=== PATIENT | male | born 1995 | race Caucasian/White ===

== ENCOUNTER 2019-08-18 09:59 | Outpatient (CLI) | payer BC, SELFPAY ==
--- NOTE | 2019-08-18 10:14 | MR_ITS ---
WS: [id number] MRI LUMBAR SPINE NONCONTRAST HISTORY: BACK PAIN LUMBAR W/RADICULOPATHY;RT SCIATICA COMPARISON: 09/11/2007 TECHNIQUE: Sagittal and axial multisequence imaging is submitted. Multiple fusion abnormalities are noted within the cervical and upper thoracic region. Patient has kn own Klippel-Feil syndrome. Straightening of the normal lumbar lordosis. No segmental abnormalities are noted in the lumbar spine . There is mild disc space narrowing and desiccation at L5-S1. Disc spaces and vertebral body heights are well-preserved. Conus terminates normally at L1-2 disc level. T11-T12: RIGHT paracentral disc osteophyte protrusion causing mild contact on the RIGHT lateral theca l sac and cord but no displacement. L1-L2: Normal. L2-L3: Mild annular disc bulging and osteophytic ridging. Shallow central to RIGHT paracentral disc p rotrusion. Disc extends into the RIGHT subarticular recess. There is mild encroachment into the RIGHT subarticular recess. No foraminal stenosis. L3-L4: Diffuse annular disc bulging. Central protrusion with annular fissure. Mild ligamentum flavum arthritis. There is mild central, subarticular recess and bilateral foraminal stenosis. L4-L5: Diffuse annular disc bulging and osteophytic ridging. Moderate size central disc protrusion wi th annular fissure. Mild central and subarticular recess stenosis with mild bilateral foraminal narro wing. L5-S1: Moderate to large RIGHT paracentral disc protrusion extends into the subarticular recess with displacement and contact on the RIGHT S1 nerve root. There is flattening of the ventral thecal sac. M oderate bilateral foraminal stenosis. This disc protrusion is new since the prior study. MR/MR lumbar spine wo con* [id number] IMPRESSION: 1. New, moderate to large RIGHT paracentral disc protrusion with extension int o the subarticular recess and displacement of the RIGHT S1 nerve root. Signific ant mass effect upon the thecal sac and nerve root. 2. Moderate bilateral foraminal stenosis at L5-S1 is multifactorial and progre ssed since the prior study. 3. Mild central, subarticular recess and foraminal stenosis at L3-4 and L4-5 d ue to combination of disc disease, facet arthritis and osteophytes. Similar to the prior study. 4. Mild encroachment into the RIGHT subarticular recess at L2-3 secondary to a disc protrusion. 5. RIGHT paracentral disc osteophyte complex at T11-12 with mild cord contact. New since the prior study.
== END 2019-08-18 10:00 | disposition home or self-care (01) ==
LOC: RADSHAW 10:07
PROVIDERS: PCP Family Medicine; Visit Provider Family Medicine
DX: M51.16 Intervertebral disc disorders with radiculopathy, lumbar region (principal); M48.061 Spinal stenosis, lumbar region without neurogenic claudication; M25.78 Osteophyte, vertebrae
CPT/HCPCS: 72148

== ENCOUNTER 2019-08-20 13:49 | Emergency (ER) | payer BC, SELFPAY ==
[2019-08-20 14:18] VITALS: BP 149/78; PULSE 113; RESP 16; TEMP 36.6; O2SAT 96; BMI 29.8
--- NOTE | 2019-08-20 15:20 | ED_ITS ---
HPI - Back Pain/Injury General: Chief Complaint: Back Pain/Injury Stated Complaint: back pain/injury/just left dr hernandez's office Time Seen by Provider: 08/20/19 14:40 History of Present Illness: HPI Narrative: 23-year-old male who comes in today complaining of back pain. He has been having trouble for about a month now he has pain radiating up his low back into his right calf around the lateral part of his leg and his buttock. He just recently had an MRI 2 days ago which was reviewed by Dr. Hernandez. Is on prednisone 20 g twice daily for the last 2 weeks. He is also been using Flexeril and hydrocodone. Prednisone seemed to help with Flexeril and hydrocodone really have not helped that much she has noticed she is become constipated but hydrocodone but otherwise he has had no urinary retention or fecal incontinence. No other trauma he thinks this began while he was running. He was sent here because of worsening pain today, the nurse practitioner Dr. Hernandez's office advised him to come in here to possibly be evaluated by Dr. Hernandez. MD elicited complaint: back pain Pertinent past history: prior back pain Onset (ago): month(s) Timing: progressively worsening Severity: severe Pain scale (0-10): 10 Quality: burning, sharp and spasming Location: lumbar spine Radiation: left upper leg and left leg below the knee Exacerbating factors: walking and lifting Relieving factors: supine and sitting upright Context: playing sports (Running) Associated symptoms: Reports no associated symptoms and tingling/numbness/burning; Deny abdominal pain, chills, dysuria, fatigue, fever(s), nausea, urinary urgency or vomiting Treatments prior to arrival: other medications (Flexeril, prednisone, hydrocodone, NSAIDs) Review of Systems Const: Denies: fever(s), chills, body aches, change in appetite, fatigue or malaise ENMT: Denies: throat pain, ear or mastoid pain, nasal discharge or nasal congestion Card: Denies: chest pain, edema, dyspnea on exertion or orthopnea Resp: Denies: dyspnea, productive cough or non-productive cough GI: Denies: abdominal pain, nausea, vomiting, hematemesis, coffee ground emesis, diarrhea, constipation, bloating, hematochezia or melena : Denies: flank pain, dysuria, urinary frequency or urinary urgency Skin/Breast: Denies: rash or pruritus PFSH ED PFSH: Medical History 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 Surgical History History of surgery on left wrist Family History Other No pertinent family history Social History Smoking and tobacco status: former smoker Alcohol intake: current Household members: friend(s) Marital status: Single Current occupational status: employed 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 History of recent travel: No Physical Exam Const: COMMON NORMALS: no acute distress GENERAL APPEARANCE: cooperative and comfortable ORIENTATION/CONSCIOUSNESS: Yes awake, Yes oriented to person, Yes oriented to place and Yes oriented to time HENMT: COMMON NORMALS: normocephalic, atraumatic, hearing grossly normal bilaterally, external ears normal, EAC's normal, TM's normal bilaterally, Normal nasal mucous membranes and turbinates present, moist oral mucous membranes and oropharynx normal HEAD & SCALP: normocephalic and atraumatic NOSE: Normal nasal mucous membranes and turbinates present EXTERNAL EAR: Yes external ears normal EXTERNAL AUDITORY CANAL: EAC's normal TYMPANIC MEMBRANE: TM's normal bilaterally Eye: COMMON NORMALS: Equal, round and reactive pupils present, EOMs intact bilaterally, conjunctivae normal and no scleral icterus CONJUNCTIVA: Yes conjunctivae normal PUPIL: Yes Equal, round and reactive pupils present Neck/C-Spine: COMMON NORMALS: full ROM, no lymphadenopathy, supple and no JVD Lymph: LYMPHATIC: no lymphadenopathy noted and no lymphedema noted Resp: COMMON NORMALS: normal respiratory effort, No retractions, No use of accessory muscles and clear to auscultation bilaterally AUSCULTATION: clear to auscultation bilaterally Cardio: COMMON NORMALS: no JVD, regular rate, regular rhythm and No murmurs present (Cardio) RATE: regular rate RHYTHM: regular rhythm GI: COMMON NORMALS: Soft to palpation and No hepatosplenomegaly present AUSCULTATION: Yes normoactive bowel sounds PALPATION: Yes Soft to palpation, No Tenderness to palpation present (GI), No Guarding due to palpation present (GI) and Yes No hepatosplenomegaly present Extremity: COMMON NORMALS: normal to inspection, capillary refill normal, no clubbing, cyanosis or edema, no calf tenderness and no pedal edema Neuro: SENSORIUM/ORIENTATION: Yes oriented to person, Yes oriented to place and Yes oriented to time DEEP TENDON REFLEXES: Right patellar reflex intensity grade: 1+, Left patellar reflex intensity grade: 1+, Right ankle reflex intensity grade: 1+ and Left ankle reflex intensity grade: 1+ OTHER: Anesthesias to lower extremities sharp dull or light touch Skin: COMMON NORMALS: no rashes or lesions noted GENERAL SKIN EXAM: no rashes or lesions noted Course Vital Signs: Vital signs: Vital Signs Temperature 97.8 F 08/20/19 14:18 Pulse Rate 72 08/20/19 17:22 Respiratory Rate 18 08/20/19 17:22 Blood Pressure 133/65 08/20/19 17:22 Pulse Oximetry 98 08/20/19 17:22 MDM - Back Pain/Injury MDM Narrative: Medical decision making narrative: Reviewed findings with the patient. He is feeling much better will go ahead and discharge him home on medications as below have him follow-up with Dr. Hernandez as soon as he is able he is to call their office tomorrow. I did discuss with Dr. Hernandez today on the phone he is out of town at this point. He felt that as long as the patient's pain is controlled there is no need to admit him but he could see him tomorrow and make further definitive arrangements for care. Patient is okay with this and we will go ahead and discharge home as below Discharge Plan Discharge Patient Disposition: Home, Self-Care Clinical Impression: Lumbar disc herniation with radiculopathy Condition: Stable Prescriptions: New Platinum 7.5-325 mg tablet 1 - 2 tab PO Q6H PRN (Reason: pain) Qty: 40 RF: 0 Lyrica 75 mg capsule 75 mg PO BID Qty: 60 RF: 0 tizanidine 4 mg capsule 4 mg PO Q8H PRN (Reason: muscle spasticity) Qty: 30 RF: 0 Discontinued cyclobenzaprine 10 mg tablet 10 mg PO TID PRNRF: 0 hydrocodone-acetaminophen 5-325 mg tablet 1 tab PO Q6H PRNRF: 0 No Action cetirizine 10 mg tablet 10 mg PO DAILY RF: 0 fluticasone propion-salmeterol [Advair Diskus] 250-50 mcg/dose blister with device 1 inh INHALATION BID RF: 0 Humatrope 6 mg (18 unit) cartridge 0.15 mg SUBCUT DAILY RF: 0 acyclovir [Zovirax] 5 % cream TOPICAL QID PRNRF: 0 valacyclovir [Valtrex] 1 gram tablet 1,000 mg PO BID RF: 0 acyclovir 400 mg tablet 400 mg PO QID RF: 0 prednisone 20 mg tablet 20 mg PO DAILY RF: 0 Discharge Orders: Discharge Order (Routine); Ordered 08/20/19 Ordered By: Guilherme Rios Referrals: Bertram Hernandez MD [Physician] - (Call for appointment tomorrow) Osman Villalba DO [Primary Care Provider] - Discharge Diet: Usual diet Discharge Activity: Limit activity as instructed Activity Restrictions/Additional Instructions: Medication changes as outlined above call Dr. Hernandez's office to make an appointment for further definitive care tomorrow. Discharge Date/Time: 08/20/19 17:25 Coding Level of Care Code ED Environmental Engineering Assistant for Chg Fwd Exam Comprehensive
[2019-08-20 15:32] VITALS: RESP 18; O2SAT 98
[2019-08-20] MEDS: morphine 4 mg/mL SDV 1 mL 6 MG IVP (15:32)
[2019-08-20] MEDS: ketorolac 30 mg/mL INJ IVP (15:34)
[2019-08-20] MEDS: orphenadrine 30 mg/mL Inj 2 mL 60 MG IVP (15:35)
[2019-08-20 17:22] VITALS: BP 133/65; PULSE 72; RESP 18; O2SAT 98
--- NOTE | 2019-08-21 14:02 | DCPLANNER ---
certified orthotist practice manager had message to schedule a follow up appointment for patient with Dr. Booth. certified orthotist practice manager called [facility], spoke with Nupur, gave clinic patients information. certified orthotist practice manager was told that patients information would be printed and given to Pavel for review. Clinic will call telephonic nurse case manager and patient with appointment information.
--- NOTE | 2019-08-27 15:05 | DCPLANNER ---
Appointment scheduled with Dr. Sidhu office has been cancelled.
== END 2019-08-20 17:25 | disposition home or self-care (01) ==
PROVIDERS: Emergency Provider Family Medicine; PCP Family Medicine
DX: M51.16 Intervertebral disc disorders with radiculopathy, lumbar region (principal); Z87.891 Personal history of nicotine dependence
CPT/HCPCS: 12345; 96374; 96375; 99281; 99283; J1885; J2270; J2360